=== PATIENT | male | born 1990 | race Caucasian/White ===

== ENCOUNTER 2016-12-05 15:53 | Emergency (ER) | payer OTHER ==
[2016-12-05 16:05] VITALS: TEMP 36.9; Ht 180.3 cm
[2016-12-05] MEDS ORDERED: KETOROLAC TROMETHAMINE 30 MG/ML VIAL IV STA (17:28)
[2016-12-05] MEDS ORDERED: HYDROmorphone INJ 1 MG/ML SYR IV STA (17:28)
[2016-12-05] MEDS ORDERED: METOCLOPRAMIDE HCL INJ 5 MG/ML 2 ML VIAL IV STA (17:28)
[2016-12-05] MEDS ORDERED: SODIUM CHLORIDE 0.9% 1000ML 1,000 ML IV STA (17:28)
--- NOTE | 2016-12-05 17:31 | EMERGENCY ROOM VISIT NOTE ---
History Report prepared by Mita: Naa Yung Under the Supervision of: Dr. Alonzo Figueroa M.D. First contact with patient: 17:12 Chief Complaint: GI ASSESSMENT Stated Complaint: VOMITING,DIARRHEA,BACK PAIN History of Present Illness The patient is a 25 year old male who presents to the Emergency Room with complaints of worsening back pain beginning today. He describes the pain as a sharp stabbing sensation and states that it was a sudden onset. 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 He also notes nausea, vomiting and diarrhea began yesterday. He denies abdominal pain. The patient does note in the past 2 months he has not been eating much and has lost 30 pounds. Source of History: patient Onset: today Position: back Quality: sharp, stabbing Timing: worsening Associated Symptoms: + diarrhea, + nausea, + vomiting Review of Systems See HPI for pertinent positives & negatives. A total of 10 systems reviewed and were otherwise negative. Past Medical & Surgical Medical Problems: (1) Disc degeneration (2) PTSD (post-traumatic stress disorder) Family History Patient reports no known family medical history. Social History Smoking Status: Current Every Day Smoker Drug Use: none Marital Status: Housing Status: lives with family Occupation Status: employed Current/Historical Medications Scheduled Ketorolac Tromethamine (Toradol), 10 MG PO DAILY Ondasetron Odt (Zofran Odt), 4 MG SL Q6H Prazosin Hcl (Prazosin), 1 MG PO DAILY Sertraline (Zoloft), 50 MG PO DAILY Scheduled PRN Oxycodone/Acetaminophen 5MG/325MG (Percocet 5MG/325MG), 1-2 TAB PO Q4H PRN for Pain Allergies Coded Allergies: No Known Allergies (Unverified , 12/05/16) Physical Exam Vital Signs Date Time Temp Pulse Resp B/P Pulse Ox O2 Delivery O2 Flow Rate FiO2 12/05/16 19:09 65 20 135/88 98 12/05/16 16:05 36.9 65 20 151/79 100 Room Air Physical Exam GENERAL: Patient is a healthy-appearing well-nourished HEAD: Normocephalic atraumatic EYES: Ocular movements intact pupils equal and react to light OROPHARYNX mucous membranes are moist no exudates present no erythema or edema present NECK: Supple no nuchal rigidity CHEST: Good equal expansion LUNGS: Clear and equal to auscultation CARDIAC: Normal S1 and S2 ABDOMEN: Soft nontender no guarding BACK: T4-T6 midline tenderness. No CVA tenderness EXTREMITIES: No pain upon palpation normal muscle strength in all groups no clubbing cyanosis or edema NEURO: Patient is following commands is answering questions appropriately. Alert and oriented x3 Cranial Nerves 2-12 grossly intact Medical Decision & Procedures ER Provider Diagnostic Interpretation: X-ray results as stated below per interpretation by me and the radiologist: THORACIC SPINE 3 VIEWS CLINICAL HISTORY: Thoracic back pain. FINDINGS: AP, lateral, and swimmer's views of the thoracic spine are obtained. No prior studies available for comparison at the time of dictation. The skeletal structures are well mineralized. There is no radiographic evidence of fracture or malalignment. Vertebral body height and alignment appear maintained. The transverse processes and pedicles are grossly intact on the frontal view. The intervertebral disc spaces are preserved. The visualized lung parenchyma appears clear. IMPRESSION: Unremarkable radiographic assessment of the thoracic spine. Electronically signed by: Yordan Gonzales M.D. 12/05/2016 6:35 PM Dictated Date/Time: 12/05/2016 6:34 PM PA CHEST ABDOMINAL SERIES CLINICAL HISTORY: Nausea and vomiting. Diarrhea. FINDINGS: A PA chest radiograph is obtained. No prior studies are available for comparison at the time of dictation. The cardiomediastinal silhouette is unremarkable. The lungs and pleural spaces are clear. No pneumothorax is seen. The bony thorax is grossly intact. Supine and erect abdominal radiographs are obtained. No prior studies are available for comparison at the time of dictation. There is a nonobstructed abdominal bowel gas pattern noting mild to moderate colonic fecal retention. No intraperitoneal free air is seen. There are no abnormal abdominal calcifications. The lumbosacral spine and bony pelvis appear intact. IMPRESSION: 1. No active disease in the chest. 2. Nonobstructed abdominal bowel gas pattern. Electronically signed by: Yordan Gonzales M.D. 12/05/2016 6:37 PM Dictated Date/Time: 12/05/2016 6:36 PM Laboratory Results 12/05/16 17:20 Red Blood Count 5.25, Mean Corpuscular Volume 88.2, Mean Corpuscular Hemoglobin 30.9, Mean Corpuscular Hemoglobin Concent 35.0, Mean Platelet Volume 10.2, Neutrophils (%) (Auto) 64.3, Lymphocytes (%) (Auto) 25.8, Monocytes (%) (Auto) 8.3, Eosinophils (%) (Auto) 1.2, Basophils (%) (Auto) 0.2, Neutrophils # (Auto) 4.28, Lymphocytes # (Auto) 1.71, Monocytes # (Auto) 0.55, Eosinophils # (Auto) 0.08, Basophils # (Auto) 0.01 12/05/16 17:20 Test 12/05/16 17:20 12/05/16 18:00 White Blood Count 6.64 K/uL (4.8-10.8) Red Blood Count 5.25 M/uL (4.7-6.1) Hemoglobin 16.2 g/dL (14.0-18.0) Hematocrit 46.3 % (42-52) Mean Corpuscular Volume 88.2 fL (80-100) Mean Corpuscular Hemoglobin 30.9 pg (25-34) Mean Corpuscular Hemoglobin Concent 35.0 g/dl (32-36) Platelet Count 168 K/uL (130-400) Mean Platelet Volume 10.2 fL (7.4-10.4) Neutrophils (%) (Auto) 64.3 % Lymphocytes (%) (Auto) 25.8 % Monocytes (%) (Auto) 8.3 % Eosinophils (%) (Auto) 1.2 % Basophils (%) (Auto) 0.2 % Neutrophils # (Auto) 4.28 K/uL (1.4-6.5) Lymphocytes # (Auto) 1.71 K/uL (1.2-3.4) Monocytes # (Auto) 0.55 K/uL (0.11-0.59) Eosinophils # (Auto) 0.08 K/uL (0-0.5) Basophils # (Auto) 0.01 K/uL (0-0.2) RDW Standard Deviation 43.7 fL (36.4-46.3) RDW Coefficient of Variation 13.5 % (11.5-14.5) Immature Granulocyte % (Auto) 0.2 % Immature Granulocyte # (Auto) 0.01 K/uL (0.00-0.02) Anion Gap 6.0 mmol/L (3-11) Estimated GFR () 95.5 Estimated GFR (Non- 82.4 BUN/Creatinine Ratio 7.0 (10-20) Calcium Level 9.3 mg/dl (8.5-10.1) Total Bilirubin 0.5 mg/dl (0.2-1) Direct Bilirubin 0.1 mg/dl (0-0.2) Aspartate Amino Transf (AST/SGOT) 13 U/L (15-37) Alanine Aminotransferase (ALT/SGPT) 21 U/L (12-78) Alkaline Phosphatase 91 U/L (45-117) Total Protein 7.8 gm/dl (6.4-8.2) Albumin 4.7 gm/dl (3.4-5.0) Lipase 89 U/L (73-393) Urine Color YELLOW Urine Appearance CLEAR (CLEAR) Urine pH 6.0 (4.5-7.5) Urine Specific [place] 1.022 (1.000-1.030) Urine Protein NEG (NEG) Urine Glucose (UA) NEG (NEG) Urine Ketones NEG (NEG) Urine Occult Blood NEG (NEG) Urine Nitrite NEG (NEG) Urine Bilirubin NEG (NEG) Urine Urobilinogen NEG (NEG) Urine Leukocyte Esterase NEG (NEG) Labs reviewed by ED physician. Medications Administered Medications (Trade) Dose Ordered Sig/New Route Start Time Stop Time Status Last Admin Dose Admin Sodium Chloride (Nss 1000ml) 1,000 ml @ 999 mls/hr Q1H1M STAT IV 12/05/16 17:28 12/05/16 18:28 DC 12/05/16 17:38 999 MLS/HR Ketorolac Tromethamine (Toradol Inj) 30 mg NOW STAT IV 12/05/16 17:28 12/05/16 17:31 DC 12/05/16 17:38 30 MG Hydromorphone HCl (Dilaudid Inj) 1 mg NOW STAT IV 12/05/16 17:28 12/05/16 17:31 DC 12/05/16 17:38 1 MG Metoclopramide HCl (Reglan Inj) 10 mg NOW STAT IV 12/05/16 17:28 12/05/16 17:31 DC 12/05/16 17:38 10 MG ED Course 172: Past medical records reviewed. The patient was evaluated in room A4. A complete history and physical examination was performed. 1728: Reglan Inj 10 mg IV, Dilaudid Inj 1 mg IV, Toradol Inj 30 mg IV, Sodium Chloride 1,000 ml @ 999 mls/hr IV. 1809: I reevaluated the patient and he is feeling better. 1852: Upon reexamination the patient is hemodynamically stable. I discussed results and treatment plan with the patient. He verbalizes agreement and understanding. The patient is ready for discharge. Medical Decision The patient is a 25 year old male who presents to the ED with complaints of back pain. Differential diagnosis: Etiologies such as appendicitis, diverticulitis, PUD, biliary pathology, UTI, pancreatitis, obstruction, mesenteric ischemia, aortic pathology, infections, inflammatory bowel disease, renal colic, as well as others were entertained. This is a 25-year-old male who presents emergency department complaining of back pain as well as gastroenteritis-like symptoms. Serial abdominal examinations were performed on the patient in the emergency department and at no time did the patient exhibit surgical abdomen or stands abdominal tenderness. In addition using shared medical decision making I felt that a CAT scan will not benefit this patient in his diagnosis. I did recommend that the patient gives a stool sample which she was unable to do in the entire time he was here in the emergency department. An IV was established, patient given normal saline bolus, Toradol, Dilaudid, Zofran. Repeat examination revealed improvement patient's symptoms. I do believe that the patient as well as to be discharged home for follow-up with his primary care physician. I did recommend the patient follow-up with orthopedics for continued back pain as well as gastroenterology for diarrhea that is been ongoing for the past 2 months. Patient was in agreement with the treatment plan. Impression Primary Impression: Back pain Additional Impression: Diarrhea Scribe Attestation The scribe's documentation has been prepared under my direction and personally reviewed by me in its entirety. I confirm that the note above accurately reflects all work, treatment, procedures, and medical decision making performed by me. Departure Information Dispostion Home / Self-Care Prescriptions Ondasetron Odt (ZOFRAN ODT) 4 Mg Tab 4 MG SL Q6H for Nausea, #6 TAB Prov: Alonzo Figueroa MD 12/05/16 Oxycodone/Acetaminophen 5MG/325MG (PERCOCET 5MG/325MG) Tab 1-2 TAB PO Q4H Y for Pain, #14 TAB Prov: Alonzo Figueroa MD 12/05/16 Referrals No Doctor, Assigned (PCP) Forms HOME CARE DOCUMENTATION FORM, IMPORTANT VISIT INFORMATION, School Instructions, Work Instructions Patient Instructions Back Pain - [facility], [facility], Vomit Diarrhea Self Care Additional Instructions Follow up with Dr Yang's office for back pain Follow up with Dr Horne's office for diarrhea You received narcotic or benzodiazepene medication while in the emergency room today. Do not drive, operate heavy machinery, or drink alcohol under the influence of this medication. Take 600 mg Ibuprofen every 6 hours Take Percocet for breakthrough pain Culture results are usually available in approx 48 hours You have been examined and treated today on an emergency basis only. This is not a substitute for, or an effort to provide, complete comprehensive medical care. It is impossible to recognize and treat all injuries or illnesses in a single emergency department visit. It is therefore important that you follow up closely with [facility]. Call as soon as possible for an appointment. Thank you for your time and consideration. I look forward to speaking with you again soon. Please don't hesitate to call us if you have any questions. Problem Qualifiers Primary Impression: Back pain Back pain location: thoracic back pain Chronicity: unspecified Back pain laterality: midline Qualified Codes: M54.6 - Pain in thoracic spine Additional Impression: Diarrhea Diarrhea type: unspecified type Qualified Codes: R19.7 - Diarrhea, unspecified
[2016-12-05] MEDS ORDERED: ONDANSETRON INJ 2 MG/ML 2 ML VIAL ONE (17:37)
[2016-12-05 17:39] LABS: BASO % 0.2 %; BASO ABS # 0.01 K/uL (0-0.2); COMPLETE YES; EOS % 1.2 %; HEMATOCRIT 46.3 % (42-52); IG% 0.2 %; LYMPH % 25.8 %; LYMPH ABS # 1.71 K/uL (1.2-3.4); MEAN CELL VOLUME 88.2 fL (80-100); MEAN CORPUSCULAR HEMOGLOBIN 30.9 pg (25-34); MEAN PLATELET VOLUME 10.2 fL (7.4-10.4); MONO % 8.3 %; NEUT % 64.3 %; PLATELET COUNT 168 K/uL (130-400); RED BLOOD COUNT 5.25 M/uL (4.7-6.1); WHITE BLOOD COUNT 6.64 K/uL (4.8-10.8)
[2016-12-05] MEDS ORDERED: KETO10TA PO (17:47)
[2016-12-05] MEDS ORDERED: PRAZ1CAP10 PO (17:47)
[2016-12-05] MEDS ORDERED: SERT50TA PO (17:47)
[2016-12-05 18:00] LABS: ALT/SGPT 21 U/L (12-78); AST/SGOT 13 U/L (15-37); BLOOD UREA NITROGEN 8 mg/dl (7-18); CALCIUM 9.3 mg/dl (8.5-10.1); CARBON DIOXIDE 29 mmol/L (21-32); CHLORIDE 110 mmol/L (98-107); GLUCOSE 88 mg/dl (70-99); POTASSIUM 3.7 mmol/L (3.5-5.1); SODIUM 145 mmol/L (136-145)
[2016-12-05 18:02] LABS: ALKALINE PHOSPHATASE 91 U/L (45-117)
[2016-12-05 18:22] LABS: URINE APPEARANCE CLEAR (CLEAR); URINE BILIRUBIN NEG (NEG); URINE COLOR YELLOW; URINE NITRITE NEG (NEG); URINE SPECIFIC GRAVITY 1.022 (1.000-1.030); UROBILINOGEN NEG (NEG)
[2016-12-05 18:31] LABS: MANUAL MICROSCOPIC REQUIRED? NO; REVIEW REQ? NO
--- NOTE | 2016-12-05 18:37 | DIAGNOSTIC IMAGING REPORT ---
THORACIC SPINE 3 VIEWS CLINICAL HISTORY: Thoracic back pain. FINDINGS: AP, lateral, and swimmer's views of the thoracic spine are obtained. No prior studies available for comparison at the time of dictation. The skeletal structures are well mineralized. There is no radiographic evidence of fracture or malalignment. Vertebral body height and alignment appear maintained. The transverse processes and pedicles are grossly intact on the frontal view. The intervertebral disc spaces are preserved. The visualized lung parenchyma appears clear. IMPRESSION: Unremarkable radiographic assessment of the thoracic spine. Electronically signed by: Yordan Gonzales M.D. 12/05/2016 6:35 PM Dictated Date/Time: 12/05/2016 6:34 PM
--- NOTE | 2016-12-05 18:39 | DIAGNOSTIC IMAGING REPORT ---
PA CHEST ABDOMINAL SERIES CLINICAL HISTORY: Nausea and vomiting. Diarrhea. FINDINGS: A PA chest radiograph is obtained. No prior studies are available for comparison at the time of dictation. The cardiomediastinal silhouette is unremarkable. The lungs and pleural spaces are clear. No pneumothorax is seen. The bony thorax is grossly intact. Supine and erect abdominal radiographs are obtained. No prior studies are available for comparison at the time of dictation. There is a nonobstructed abdominal bowel gas pattern noting mild to moderate colonic fecal retention. No intraperitoneal free air is seen. There are no abnormal abdominal calcifications. The lumbosacral spine and bony pelvis appear intact. IMPRESSION: 1. No active disease in the chest. 2. Nonobstructed abdominal bowel gas pattern. Electronically signed by: Yordan Gonzales M.D. 12/05/2016 6:37 PM Dictated Date/Time: 12/05/2016 6:36 PM
[2016-12-05] MEDS ORDERED: OXYC-57 PO (18:51)
[2016-12-05] MEDS ORDERED: ONDA4TAB10 SL (18:51)
[2016-12-05 19:09] VITALS: BP 135/88; PULSE 65; O2SAT 98
== END 2016-12-05 19:11 | disposition home or self-care (01) ==
LOC: C.EDB 15:54 → C.EDA 19:11
DX: M54.9 Dorsalgia, unspecified (principal); G89.29 Other chronic pain; F43.10 Post-traumatic stress disorder, unspecified; F17.210 Nicotine dependence, cigarettes, uncomplicated; Z79.899 Other long term (current) drug therapy; R19.7 Diarrhea, unspecified